=== PATIENT | male | born 2000 | race Caucasian/White ===

== ENCOUNTER 2022-08-31 23:40 | Emergency (ER) | payer BC, SELFPAY ==
[2022-09-01 00:06] VITALS: BP 133/76; PULSE 110; RESP 20; TEMP 36.7; O2SAT 99; BMI 28.6
--- NOTE | 2022-09-01 00:30 | ED.GENADULT ---
HPI - General Adult General Chief complaint: Unspecified Complaint, Adult Stated complaint: can't feel his body. Time Seen by Provider: 09/01/22 00:10 Source: patient Mode of arrival: ambulatory Limitations: no limitations History of Present Illness HPI narrative: 21-year-old male presents with incredibly vague symptoms. He states that 3 hours ago he was watching TV with a friend. I get the impression this was a female romantic type encounter. He started to notice a headache, not feeling well and decided to start going home. He says that he ?can not feel his body?. He says this as he is deliberately scratching at a spot on his forearm. When asked more clarification, it says that he feels disconnected from his body. He is ambulating without difficulty, there is no swallowing problems. He denies any head injury. He notes no fevers. He says that he was driving and felt like he could not feel his feet and pulled over. Friend brought him to the emergency department. It is that he is feeling very short of breath. He reports that he has a history of asthma. He says that he tried taking some of his albuterol and is uncertain if it helped him. It sounds as though he has a history of exercise-induced asthma. He gives me very mix signals about this albuterol, originally stating that he has some and then saying that he is now out. He says that he plans to pickle cutter more tomorrow but when I asked specifically if he has any for continued use if needed overnight, he states that he does not. He adamantly denies any anxiety or symptoms of a panic attack. No difficulty moving of his extremities, symptoms are equal bilateral, worse peripherally. Came on rather suddenly. 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 Of note, he has not had any symptoms until now. He states that he has had symptoms once prior that have been similar to this and was told it was allergies. We do not have prior records. Past medical history he states is benign, no major long-term health problems. Denies prior surgeries his only long-term medication is albuterol, no allergies. Socially he denies any illicit drug use even marijuana, at I etc.. Family history is negative for neurological disorders per his report. Related Data Home Medications Medication Instructions Recorded Confirmed albuterol sulfate 90 mcg/actuation 2 puff inhalation Q4H PRN 09/01/22 09/01/22 aerosol inhaler (ProAir HFA) Allergies Allergy/AdvReac Type Severity Reaction Status Date / Time No Known Drug Allergies Allergy Verified 09/01/22 00:08 Review of Systems Status of ROS: Reports: 10 or more systems reviewed and unremarkable except as noted in History and below Exam Const: Vital Signs, click to edit/add: Vital Signs - 24 hr 09/01/22 00:06 Temperature 98.0 F Pulse Rate [Right Pulse Oximeter] 110 H Respiratory Rate 20 Blood Pressure [Ri ght Upper Arm] 133/76 Pulse Oximetry 99 Oxygen Delivery Me thod Room Air Documenting provider has reviewed patient's vital signs: yes Common normals: alert General appearance: well kempt Orientation/consciousness: Yes awake Other: Anxious but cooperative. Thought process logical, insight is moderate. HENMT: Common normals: normocephalic Head and scalp: normocephalic Mouth: oral and palatal mucosa normal Throat: posterior oropharynx normal Eye: Common normals: EOMs intact bilaterally, conjunctivae normal and no scleral icterus Conjunctiva: conjunctiva(e) normal Neck & C-Spine: Common normals: full ROM and no lymphadenopathy Resp: Common normals: normal respiratory effort, no use of accessory muscles and clear to auscultation bilaterally Effort & inspection: able to speak in complete sentences Auscultation: clear to auscultation bilaterally Cardio: Common normals: regular rate, regular rhythm, S1 normal heart sound, S2 normal heart sound, no murmurs and peripheral pulses 2+ throughout Rate: regular rate Rhythm: regular rhythm Heart sounds: S1 normal and S2 normal Peripheral pulses: pulses 2+ throughout Extremity: Common normals: normal to inspection, full ROM, normal capillary refill, no joint enlargement and no clubbing, cyanosis or edema Neuro: Sensorium/orientation: awake and alert Cranial nerves: CN normal except as noted Coordination/balance: tandem gait normal, does not sway with eyes open, Romberg test negative, Normal rapid alternating movements of the distal upper extremity present (Neuro) and Normal rapid alternating movements of the distal lower extremity present (Neuro) Speech: speech normal Gait (neuro): normal gait Motor exam: strength 5/5 throughout, no tremor noted and no movement abnormalities noted Coordination: tandem gait normal, does not sway with eyes open, rapid alternating movement UE normal and rapid alternating movement LE normal Psych: Common normals: thought process normal Appearance: well kempt Attitude: engaged Activity/motor behavior: appropriate eye contact Thought process: normal thought process Thought content: normal thought content Insight: fair Judgement: judgment good Skin: Common normals: no rashes or lesions noted General skin exam: no rashes or lesions noted Course Vital Signs Vital signs: Initial Vital Signs Temperature 98.0 F 09/01/22 00:06 Temperature Source Temporal Artery Scan 09/01/22 00:06 Pulse Rate 110 H 09/01/22 00:06 Respiratory Rate 20 09/01/22 00:06 Blood Pressure 133/76 09/01/22 00:06 Blood Pressure Mean 95 09/01/22 00:06 Blood Pressure Position Sitting 09/01/22 00:06 Pulse Oximetry 99 09/01/22 00:06 Oxygen Delivery Method 09/01/22 00:06 Vital Signs Temperature 98.0 F 09/01/22 00:06 Pulse Rate 110 H 09/01/22 00:06 Respiratory Rate 20 09/01/22 00:06 Blood Pressure 133/76 09/01/22 00:06 Pulse Oximetry 99 09/01/22 00:06 Oxygen Delivery Method 09/01/22 00:06 Temperature 98.0 F 09/01/22 00:06 Pulse Rate 110 H 09/01/22 00:06 Respiratory Rate 20 09/01/22 00:06 Blood Pressure 133/76 09/01/22 00:06 Pulse Oximetry 99 09/01/22 00:06 Oxygen Delivery Method 09/01/22 00:06 Medical Decision Making MDM Narrative Medical decision making narrative: Completely benign physical exam. Findings relayed to patient. I am thinking most likely this is a panic attack, he adamantly denies. I do not see any evidence of wheezing, respiratory distress at this time. It is true that the albuterol could have taken those symptoms away it would be unlikely if they were severe. Offered patient famotidine and Benadryl for allergies which he accepts. We discussed continued use of albuterol if needed. He will need a temporary inhaler for the night and then he states he can pick 1 up at the local pharmacy as he has a prescription. Stress that I do not see any significant emergent neurological disorder tonight. I would encourage him to continue monitoring of his symptoms and follow up with primary care provider if symptoms persist. He verbalizes understanding and agreement. He elects not to wait for the results of his influenza test. I let him know that we could call him if this is unexpectedly positive. Discharge Plan Discharge Clinical Impression: Mild shortness of breath Patient Disposition: Home, Self-Care Condition: Improved Instructions: Asthma (DC) Additional Instructions: There are no signs of an allergic reaction today. This is reassuring. I do not hear any wheezing on your exam. If you have taken your albuterol just prior to my assessment, this certainly could be the case. As he stated, your now out of albuterol puffs. I have prescribed a temporary inhaler for you to use from the vending machine in the lobby. The mindful that this is not a full canister. Please pickle cutter the additional inhaler that you planned tomorrow. Continue using her albuterol every few hours as needed for shortness of breath. I am still suspicious based on the tingling your describing that this is more related to a panic attack. Attention to your symptoms and see if you notice a pattern. It would be otherwise unusual for this type of a reaction to occur 4 days after an inhalation exposure. The etiology is most likely a different reason. There were no significant signs of illness, no stroke-like symptoms, I do not recommend further workup. Your oxygen levels are perfect. Your respiratory rate is normal and your lung exam is perfect. Continue use of your albuterol as needed and follow up with her primary care provider if you are having symptoms more than a couple of times per week, you would then be recommended to start a steroid inhaler long-term. Please remember to wear your mask when you are around inhalational irritants Activity Level: No Restrictions Discharge Diet: Regular Prescriptions: No Action albuterol sulfate [ProAir HFA] 90 mcg/actuation HFA aerosol inhaler 2 puff INHALATION Q4H PRN Label Comments: INHALE 2 PUFFS BY MOUTH EVERY 4 HOURS NEEDED Follow Up/Referrals: Gerhard Leos MD [Primary Care Provider] - Stand Alone Forms: [employer] Info Instructions
--- OUTSIDE RECORDS SUMMARY | 2022-09-01 00:41 | XMS_ITS | Clinical Summary ---
:2000 Author Organization [employer] [facility] [employer] [facility] [place] [address] Care Team Providers Name Role Phone Pcp, No Primary Care Provider Unavailable Allergies Active Allergy Reactions Severity Noted Date Comments Unlisted Allergen (Include Detail Runny Nose 012 Seasonal allergies In Comments) Medications Medication Sig Dispensed Refills Start Date End Date Status Inhalational Spacing For home use. 1 Device 0 02/25/2016 Active DeviceIndications: Asthma exacerbation fluticasone (50 mcg Inhale 1 Ipava 1 Bottle 6 10/25/2019 Active per actuation) nasal into both nostrils solution once daily. (FLONASE)Indications: Allergic rhinitis due to other allergic trigger, unspecified seasonality fluticasone-salmeterol Inhale 1 Puff by 1 Each 5 05/30/2020 Active (AIRDUO RESPICLICK) mouth 2 times 55-14 mcg/actuation daily. aepb inhalerIndications: Moderate persistent asthma without complication cetirizine (ZYRTEC) 10 Take 1 tablet by 90 tablet 3 05/30/2020 Active mg tabletIndications: mouth once daily. Allergic rhinitis due to other allergic trigger, unspecified seasonality desonide 0.05% Apply topically to 60 g 5 05/30/2020 Active (TRIDESILON 0.05% affected area(s) 2 OINTMENT) 0.05 % times daily. ointmentIndications: Flexural atopic dermatitis fluticasone Inhale 1 Puff by 1 Inhaler 4 06/07/2020 Active propion-salmeteroL mouth 2 times (ADVAIR DISKUS) 100-50 daily. mcg/dose diskus inhalerIndications: Moderate persistent asthma without complication montelukast TAKE 1 TABLET BY 90 Tablet 0 01/22/2021 Active (SINGULAIR) 10 mg MOUTH AT BEDTIME tabletIndications: Moderate persistent asthma without complication, Allergic rhinitis due to other allergic trigger, unspecified seasonality albuterol HFA INHALE 2 PUFFS BY 8.5 g 5 11/21/2021 Active (PRO-AIR; VENTOLIN; MOUTH EVERY 4 PROVENTIL) 90 HOURS NEEDED mcg/actuation inhalerIndications: Moderate persistent asthma without complication Active Problems Problem Noted Date Acanthosis nigricans 08/06/2017 Other person consulting on behalf of another person Post traumatic stress disorder 02/05/2012 Allergic rhinitis, cause unspecified 12/16/2007 Moderate persistent asthma without complication 2007 Atopic dermatitis Resolved Problems Problem Noted Date Resolved Date Asthma, severe persistent, poorly-controlled 06/09/2010 08/06/2017 Immunizations Name Administration Dates Next Due DTaP 06/03/2006, 04/14/2002, 11/30/2001, 07/26/2001, 02/03/2001 HIB-HepB (Comvax) 04/14/2002, 07/26/2001, 02/03/2001 HPV 9 (Gardasil 9) 04/05/2018, 08/06/2017, 06/15/2016 Hepatitis A (Peds) 08/06/2017, 06/15/2016 Inactivated Polio Vaccine 06/03/2006, 09/13/2003, 07/26/2001 , 02/03/2001 Influenza A (H1N1), Inactivated 08/15/2009 Influenza A (H1N1), Inactivated (Age 1108/15/2009 >=3 Years) Influenza, IIV3 (Age >=3 years) 07/21/2010 Influenza, IIV4 10/25/2019, 08/06/2017 MMR 06/03/2006, 11/30/2001 Meningococcal Vaccine (Menveo) 08/06/2017, 06/15/2016 Pneumococcal conj 7-Valent (Prevnar 7) 04/14/2002, 2, 02/03/2001 Tdap 05/31/2013 Varicella Vaccine 06/03/2006, 11/30/2001 Family History Medical History Relation Name Comments Asthma Maternal Aunt Good Health Mother Nayla Relation Name Status Comments Maternal Aunt Mother Nayla Alive Social History Tobacco Use Types Packs/Day Years Used Date Never Smoker Smokeless Tobacco: Never Used Tobacco Cessation: Counseling Given: Yes Comments: no exposure Alcohol Use Standard Drinks/Week Comments No 0 (1 standard drink = 0.6 oz pure alcoho l) Sex Assigned at Date Recorded Not on file Obstetrics History Last Filed Vital Signs Vital Sign Reading Time Taken Comments Blood Pressure 117/78 05/30/2020 10:21 AM CDT Pulse 71 05/30/2020 10:21 AM CDT Temperature 37.2 ??C (98.9 ??F) 04/05/2018 2:28 PM CDT Respiratory Rate 18 01/19/2011 7:42 PM CDT Oxygen Saturation 96% 05/30/2020 10:21 AM CDT Inhaled Oxygen Concentration - - Weight 82.6 kg (182 lb) 05/30/2020 10:21 AM CDT Height 182.9 cm (6') 05/30/2020 10:21 AM CDT Body Mass Index 24.68 05/30/2020 10:21 AM CDT Plan of Treatment Health Maintenance Due Date Last Done Comments COVID-19 vaccine series (#1) 05/23/2001 HIV for age 15-65 2015 Hepatitis C screening for age 0211/23/2018 18-79 Depression screening for age 12+ 10/25/2020 10/25/2019, 06/2018, 08/06/2017, Additional history exists BMI (ht and wt on same day) for 05/30/2021 05/30/2020, 09/28 age 18+ Influenza for age 9-49 05/28/2022 10/25/2019, 08/06/2017, 07/21/2010, Additional history exists Tetanus booster 05/31/2023 05/31/2013 Tdap Completed 05/31/2013 Meningococcal series for age 11-21 Completed 08/06/2017, 0 06/15/2016 HPV series for age 9-26 Completed 04/05/2018, 08/06/2017, 06/15/2016 Results Not on filefrom Last 3 Months Insurance Payer Benefit Plan / Subscriber ID Effective Dates Phone Addre ss Type Group [employer] [id number] 2019-Present [address] [address] [place] [address] Care Teams Screen Printer Relationship Specialty Start Date End Date Pcp, No PCP - General 03/15/14 .
[2022-09-01 00:55] LABS: PCR FLU A Negative PCR FLU A (Negative); PCR FLU B Negative PCR FLU B (Negative)
[2022-09-01] MEDS: FAMOTIDINE 20 MG TABLET PO (01:00)
[2022-09-01] MEDS: diphenhydrAMINE 25 MG CAPSULE PO (01:00)
[2022-09-01 01:02] LABS: SARS PCR* POSITIVE SARS-CoV-2 (Negative)
[2022-09-01 01:15] VITALS: BP 118/68; PULSE 84; RESP 18; TEMP 36.7; O2SAT 99
[2022-09-01 01:26] VITALS: BP 125/70; PULSE 89; RESP 18; TEMP 36.7
[2022-09-01 02:32] VITALS: RESP 20; O2SAT 99
== END 2022-09-01 01:28 | disposition home or self-care (01) ==
PROVIDERS: Emergency Provider Family Medicine; PCP Pediatrics
DX: U07.1 COVID-19 (principal)
CPT/HCPCS: 87631; 99282; 99283; A9270

== ENCOUNTER 2022-10-07 16:17 | Emergency (ER) | payer BC, SELFPAY ==
[2022-10-07 16:30] VITALS: BP 142/88; PULSE 112; RESP 24; TEMP 36.7; O2SAT 96; BMI 26.4
--- NOTE | 2022-10-07 16:48 | ED_ITS ---
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 He is using some moisturizing lotion topically. It does not itch much he has got some excoriations noted redness around them as well there on his legs and arms and trunk. No throat swelling, no tongue swelling, no bruit difficulty breathing, no chest pain. Related Data Previous Rx's Medication Instructions Recorded albuterol sulfate 90 mcg/actuation 2 puff inhalation Q4H PRN asthma 10/02/22 aerosol inhaler (ProAir HFA) #8.5 grams cephalexin 500 mg capsule 500 mg PO TID 7 days #21 caps 10/07/22 prednisone 20 mg tablet 20 mg PO BID 5 days #10 tabs 10/07/22 triamcinolone acetonide 0.5 % 1 applic topical BID #15 grams 10/07/22 topical cream Allergies Allergy/AdvReac Type Severity Reaction Status Date / Time No Known Drug Allergies Allergy Verified 09/01/22 00:08 Review of Systems Status of ROS: Reports: 6 or more systems reviewed and unremarkable except as noted in History and below [facility] Medical History Asthma Surgical History No significant past surgical history Social History Smoking Status: Never smoker Do you use any of these nicotine containing products: None Second hand tobacco smoke exposure: No How often do you have a drink containing alcohol: monthly or less How often do you have six or more drinks on one occasion: Never AUDIT-C Alcohol total score: 1 Non-prescribed substance use: denies use service: No Exam Narrative: Exam Narrative: Objective: Patient's vital signs look largely unremarkable on the borderline blood pressure He has got diffuse excoriated small patches across his arms legs trunk legs back armpits, some of the areas look urticarial around his armpits and arms. He reports are not very pruritic, he has no breathing difficulty, no throat problems HEENT is unremarkable Extremities good perfusion neurologic nonfocal Const: Vital Signs, click to edit/add: Vital Signs - 24 hr 10/07/22 16:30 Temperature 98.1 F Pulse Rate [Right Pulse Oximeter] 112 H Respiratory Rate 24 Blood Pressure [Ri ght Upper Arm] 142/88 H Pulse Oximetry 96 Oxygen Delivery Me thod Room Air Course Vital Signs Vital signs: Initial Vital Signs Temperature 98.1 F 10/07/22 16:30 Temperature Source Temporal Artery Scan 10/07/22 16:30 Pulse Rate 112 H 10/07/22 16:30 Respiratory Rate 24 10/07/22 16:30 Blood Pressure 142/88 H 10/07/22 16:30 Blood Pressure Mean 106 10/07/22 16:30 Blood Pressure Position Sitting 10/07/22 16:30 Pulse Oximetry 96 10/07/22 16:30 Oxygen Delivery Method 10/07/22 16:30 Vital Signs Temperature 98.1 F 10/07/22 16:30 Pulse Rate 112 H 10/07/22 16:30 Respiratory Rate 24 10/07/22 16:30 Blood Pressure 142/88 H 10/07/22 16:30 Pulse Oximetry 96 10/07/22 16:30 Oxygen Delivery Method 10/07/22 16:30 Temperature 98.1 F 10/07/22 16:30 Pulse Rate 112 H 10/07/22 16:30 Respiratory Rate 24 10/07/22 16:30 Blood Pressure 142/88 H 10/07/22 16:30 Pulse Oximetry 96 10/07/22 16:30 Oxygen Delivery Method 10/07/22 16:30 Medical Decision Making MDM Narrative Medical decision making narrative: The patient has what appears to be folliculitis with perhaps an allergic component. I think be rodriguez to continue the Aquaphor topically, continue 0.1% triamcinolone cream b.i.d. to the affected areas that are most bothersome, would also give him prednisone for 20 mg b.i.d. starting tomorrow he will skip 50 mg in the ER tonight. And lastly I would put him on Keflex 500 t.i.d. x7 days. I would recommend he see Dr. Vines in a week, return to see primary care or ER sooner problems concerns or worsening or any difficulty breathing or other marlene rns with allergy. He has stop the soap that he thinks he has is the offending allergy in. I think that is appropriate action. Return as needed Discharge Plan Discharge Clinical Impression: Folliculitis, Rash Patient Disposition: Home, Self-Care Condition: Stable Additional Instructions: Use regular soap for cleaning daily, will use Aquaphor topically for moisturizing as needed. Will use topical steroid as well as Keflex and prednisone for few days, see Dr. Vines in a week Activity Level: Light activity Discharge Diet: Regular Prescriptions: New triamcinolone acetonide 0.5 % cream 1 applic topical BID Qty: 15 0RF cephalexin 500 mg capsule 500 mg PO TID 7 Days Qty: 21 0RF prednisone 20 mg tablet 20 mg PO BID 5 Days Qty: 10 0RF No Action albuterol sulfate [ProAir HFA] 90 mcg/actuation HFA aerosol inhaler 2 puff INHALATION Q4H PRN (Reason: asthma) Qty: 8.5 0RF Follow Up/Referrals: Cyrus Amaya MD [Primary Care Provider] - Stand Alone Forms: [employer] Info Instructions
[2022-10-07] MEDS: predniSONE 10 MG TABLET 50 MG PO (16:58)
== END 2022-10-07 17:00 | disposition home or self-care (01) ==
PROVIDERS: Emergency Provider Family Medicine; PCP Family Medicine
DX: L73.9 Follicular disorder, unspecified (principal)
CPT/HCPCS: 99283; J7512

== ENCOUNTER 2022-10-12 09:03 | Outpatient (CLI) | payer BC, SELFPAY ==
[2022-10-12 09:28] LABS: Cholesterol* 141 mg/dL (90-199)
[2022-10-12 09:29] LABS: Glucose* 99 mg/dL (60-115); HDL Cholesterol* 36 mg/dL (>=40); LDL Cholesterol Calculated 83 mg/dL (<100); Triglycerides* 111 mg/dL (40-149)
== END 2022-10-12 09:04 | disposition home or self-care (01) ==
PROVIDERS: PCP Family Medicine; Visit Provider Family Medicine
DX: Z13.1 Encounter for screening for diabetes mellitus (principal); Z13.6 Encounter for screening for cardiovascular disorders
CPT/HCPCS: 80061; 82947

== ENCOUNTER 2023-01-28 19:47 | Emergency (ER) | payer BC, SELFPAY ==
[2023-01-28 20:41] VITALS: BP 148/70; PULSE 79; RESP 16; TEMP 36.6; O2SAT 99
--- NOTE | 2023-01-28 21:07 | CRLHL7_ITS ---
For Patients: As a result of the Cures Act, medical imaging exams and procedure reports are released immediately into your electronic medical record. You may view this report before your referring provider. If you have questions, please contact your health care provider. INDICATION: Nail in foot, injury, foreign body TECHNIQUE: Foot radiograph 2 views left COMPARISON: None FINDINGS: Bone: No acute fractures or aggressive bone lesions are identified. Joint: The visualized hindfoot, midfoot, and forefoot joints are unremarkable in appearance. No significant ankle effusion is seen. Soft tissue: Unremarkable. No radiopaque foreign bodies are seen. IMPRESSION: 1. No acute osseous injuries or abnormalities are noted. Dictated by Steve Clarke MD @ 01/28/2023 9:28:17 PM Dictated by: Steve Clarke MD @ 01/28/2023 21:28:23 (Electronically Signed)
--- NOTE | 2023-01-28 21:33 | ED.LOWEXIN ---
HPI - Extremity Injury (Lower) General Time Seen by Provider: 21:33 Date Seen: 01/28/23 Chief Complaint: Extremity Pain/Injury, Lower Stated Complaint: Nail in Foot Time Seen by Provider: 01/28/23 21:33 Source: patient and RN notes reviewed Mode of arrival: ambulatory Limitations: no limitations History of Present Illness HPI Narrative: Dallas is a very pleasant 22-year-old male but previously healthy who comes to the emergency room for evaluation regarding a left foot injury. 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 He had taken off his boots because they were full of paint and accidentally stepped on a mckeon stale extending through [employer]. He was barefooted at this time. It did not go through a tennis shoe or a boot. He noted though that it was day in his arch of his foot and would not come out. He states he had a screw it out 4 times in order for it to come out. I am estimating this is likely probably a cm of penetration into the foot. He denies numbness or tingling. He states he is planning on working tomorrow. He thinks his tetanus was updated in September of this year. Related Data Previous Rx's Medication Instructions Recorded fluticasone 55 mcg-salmeterol 14 1 inh inhalation BID #3 ea 10/13/22 mcg/actuation breath activated powder doxycycline monohydrate 100 mg 100 mg PO BID #20 caps 11/03/22 capsule albuterol sulfate 90 mcg/actuation 2 puff inhalation Q4H PRN asthma 12/03/22 aerosol inhaler (ProAir HFA) #8.5 grams Allergies Allergy/AdvReac Type Severity Reaction Status Date / Time No Known Drug Allergies Allergy Verified 11/03/22 07:22 Review of Systems Status of ROS: Reports: 6 or more systems reviewed and unremarkable except as noted in History and below [facility] Medical History Asthma ?J45.909 - Unspecified asthma, uncomplicated (ICD-10) Surgical History No significant past surgical history Social History Smoking Status: Never smoker Do you use any of these nicotine containing products: None Second hand tobacco smoke exposure: No How often do you have a drink containing alcohol: monthly or less How often do you have six or more drinks on one occasion: Never AUDIT-C Alcohol total score: 1 Non-prescribed substance use: denies use Little interest or pleasure in doing things: several days Feeling down, depressed, or hopeless: several days service: No Exam Narrative: Exam Narrative: Patient is a very pleasant 22-year-old male in no acute distress. Examination of the left foot shows a 2-1/2-3 mm defect in the arch of the foot. There is a skin flap here. I do not note any foreign bodies. It appears to track somewhat caudally. No bleeding at this time. This area was cleansed with Betadine and 1% lidocaine with epinephrine was used to infuse the area for anesthesia. Const: Vital Signs, click to edit/add: Vital Signs - 24 hr 01/28/23 20:41 Temperature 97.9 F Pulse Rate [Left P ulse Oximeter] 79 Respiratory Rate 16 Blood Pressure [Ri ght Upper Arm] 148/70 H Pulse Oximetry 99 Oxygen Delivery Me thod Room Air Documenting provider has reviewed patient's vital signs: yes Course Course Hospital Course: Patient will have irrigation of this wound. We will ascertain his tetanus. Vital Signs Vital signs: Initial Vital Signs Temperature 97.9 F 01/28/23 20:41 Temperature Source Temporal Artery Scan 01/28/23 20:41 Pulse Rate 79 01/28/23 20:41 Pulse Rhythm Regular 01/28/23 20:41 Respiratory Rate 16 01/28/23 20:41 Blood Pressure 148/70 H 01/28/23 20:41 Blood Pressure Mean 96 01/28/23 20:41 Blood Pressure Position Sitting 01/28/23 20:41 Pulse Oximetry 99 01/28/23 20:41 Oxygen Delivery Method Room Air 01/28/23 20:41 Vital Signs Temperature 97.9 F 01/28/23 20:41 Pulse Rate 79 01/28/23 20:41 Respiratory Rate 16 01/28/23 20:41 Blood Pressure 148/70 H 01/28/23 20:41 Pulse Oximetry 99 01/28/23 20:41 Oxygen Delivery Method Room Air 01/28/23 20:41 Temperature 97.9 F 01/28/23 20:41 Pulse Rate 79 01/28/23 20:41 Respiratory Rate 16 01/28/23 20:41 Blood Pressure 148/70 H 01/28/23 20:41 Pulse Oximetry 99 01/28/23 20:41 Oxygen Delivery Method Room Air 01/28/23 20:41 MDM - Extremity Injury (Lower) MDM Narrative Medical decision making narrative: 1. Left foot injury-penetrating injury by a sheet rock screw. No foreign bodies were noted. Irrigation with 500 mL normal saline. Patient will be placed on Keflex 500 mg p.o. b.i.d. x5 days as wound prophylaxis. Patient will be instructed to keep this wound as clean as possible. Cover when working. Follow-up with Dr. Orquidea alvarado on Wednesday for recheck. Seek medical attention for fever, vomiting, worsening symptoms. 2. Disposition-home at this time. Patient declines crutches. Imaging Data Foot x-ray: Attestation: I have reviewed the pertinent imaging results. My impression: No obvious foreign body or bony compromise Radiologist's impression: Bone: No acute fractures or aggressive bone lesions are identified. Joint: The visualized hindfoot, midfoot, and forefoot joints are unremarkable in appearance. No significant ankle effusion is seen. Soft tissue: Unremarkable. No radiopaque foreign bodies are seen. IMPRESSION: 1. No acute osseous injuries or abnormalities are noted. Discharge Plan Discharge Clinical Impression: Injury of foot Patient Disposition: Home, Self-Care Condition: Improved Additional Instructions: Try and stay off foot as much as possible. Recommend keeping this covered if working. Use crutches if needed. Follow-up with Dr. Nuñez on Wednesday for recheck. Antibiotic as directed. This will be given via [facility]. Seek medical attention for increasing pain, fever, vomiting, redness or discharge that is pus Prescriptions: No Action fluticasone propion-salmeterol 55-14 mcg/actuation aerosol powdr breath activated 1 inh inhalation BID Qty: 3 3RF doxycycline monohydrate 100 mg capsule 100 mg PO BID Qty: 20 0RF albuterol sulfate [ProAir HFA] 90 mcg/actuation HFA aerosol inhaler 2 puff INHALATION Q4H PRN (Reason: asthma) Qty: 8.5 0RF Follow Up/Referrals: Cyrus Amaya MD [Primary Care Provider] - Stand Alone Forms: [facility] Info Instructions
[2023-01-28] MEDS: IBUPROFEN 200 MG TABLET 600 MG PO (22:00)
--- NOTE | 2023-01-28 22:34 | ED.NURSE ---
Wound irrigated with 500ml sterile irrigation fluid. Bacitracin applied with tefla and gauze. Surgical tape on top.
== END 2023-01-28 23:24 | disposition home or self-care (01) ==
LOC: ED 21:55
PROVIDERS: Emergency Provider Family Medicine; PCP Family Medicine
DX: S91.332A Puncture wound without foreign body, left foot, initial encounter (principal); W22.8XXA Striking against or struck by other objects, initial encounter; Y99.0 Civilian activity done for income or pay
CPT/HCPCS: 73620; 99283; A9270